=== PATIENT | female | born 1990 | race Caucasian/White ===

== ENCOUNTER 2019-05-17 18:14 | Emergency (ER) | payer OTHER ==
[~2019-05-17] VITALS: Ht 160 cm; Wt 73.9 kg
--- NOTE | 2019-05-17 18:20 | NUR ---
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
--- NOTE | 2019-05-17 18:45 | NUR ---
IV LINE ESTABLISHED, BLOOD DRAWNED AND SENT TO LAB.
--- NOTE | 2019-05-17 18:52 | NUR ---
SEEN AND EXAMINED BY .
[2019-05-17 18:57] LABS: BASOPHILS # (AUTO) 0.1 /CMM (0.0-0.2); BASOPHILS % (AUTO) 0.6 % (0.0-2.0); EOSINOPHILS % (AUTO) 1.8 % (0.0-6.0); HEMATOCRIT 43 % (33-45); HEMOGLOBIN 14.4 g/dL (11.5-14.8); LYMPHOCYTES # (AUTO) 1.8 /CMM (0.8-4.8); LYMPHOCYTES % (AUTO) 12.8 % (20.0-44.0); MEAN CORPUSCULAR HGB CONC 33 g/dl (31.0-36.0); MEAN CORPUSCULAR VOLUME 89 fL (82-100); MONOCYTES # (AUTO) 0.8 /CMM (0.1-1.30); MONOCYTES % (AUTO) 5.4 % (2.0-12.0); NEUTROPHILS # (AUTO) 11.3 /CMM (1.8-8.9); NEUTROPHILS % (AUTO) 79.4 % (43.0-81.0); PLATELET COUNT (AUTO) 361 /CMM (150-450); RED BLOOD CELL COUNT(AUTO) 4.84 MIL/uL (4.0-5.2); WHITE BLOOD COUNT (AUTO) 14.3 K/uL (4.3-11.0)
[2019-05-17 19:12] LABS: CALCIUM, SERUM 9.3 mg/dL (8.5-10.1); CREATININE 0.9 mg/dL (0.6-1.3); POTASSIUM 3.8 mmol/L (3.5-5.1)
[2019-05-17] MEDS ORDERED: diphenhydrAMINE HCL 50 MG/ML VIAL ONE (19:19)
[2019-05-17] MEDS ORDERED: METOCLOPRAMIDE HCL 10 MG/2 ML VIAL ONE ×2 (19:19→20:31)
--- NOTE | 2019-05-17 19:20 | NUR ---
PT IS WHEELED TO CT SCAN VIA [facility].
[2019-05-17] MEDS: METOCLOPRAMIDE HCL 10 MG/2 ML VIAL IV ONE ×2 (19:34→20:38)
[2019-05-17] MEDS: diphenhydrAMINE HCL 50 MG/ML VIAL IV ONE (19:34)
[2019-05-17] MEDS: IV NS 0.9% 1,000 ML BAG IV ONE (19:34)
[2019-05-17] MEDS ORDERED: KETOROLAC TROMETHAMINE INJ 30 MG/ML VIAL ONE (20:31)
[2019-05-17] MEDS: KETOROLAC TROMETHAMINE INJ 30 MG/ML VIAL IV ONE (20:38)
[2019-05-17 21:58] VITALS: BP 108/77
== END 2019-05-17 21:58 | disposition home or self-care (01) ==
LOC: ER 18:17
DX: G43.909 Migraine, unspecified, not intractable, without status migrainosus (principal); R11.2 Nausea with vomiting, unspecified
CPT/HCPCS: 36415; 70450; 80048; 85025; 96374; 96375; 96376; 99284; A4216; J1200; J1885; J2765 ×2; J7030